=== PATIENT | female | born 1970 | race Caucasian/White ===

== ENCOUNTER 2017-03-20 20:23 | Inpatient (IN) ==
[2017-03-20 21:21] LABS: Bilirubin,Urine Negative (Negative); Blood,Urine Negative (Negative); Clarity,Urine Clear (Clear); Color,Urine Yellow (Yellow); Glucose,Urine (UA) Normal (Normal); Ketones,Urine Negative (Negative); Leukocyte Esterase,Urine Negative (Negative); Nitrite,Urine Negative (Negative); Protein,Urine Negative (Neg-Trace); Specific Gravity,Urine 1.021 (1.010-1.025); Urobilinogen,Urine Normal (Normal)
[2017-03-20 21:28] LABS: Basophils # 0.1 K/mcL (0.0-0.2); Basophils % 0.9 %; Eosinophils # 0.1 K/mcL (0.0-0.6); Eosinophils % 0.6 %; Hematocrit 42.8 % (35.3-44.9); Hemoglobin 15.1 g/dL (11.5-15.4); Immature Granulocytes % 0.2 % (0-4); Lymphocytes # 3.6 K/mcL (0.6-4.6); Lymphocytes % 41.8 %; Mean Corpuscular HGB Conc 35.3 g/dL (31.6-35.5); Mean Corpuscular Hemoglobin 30.4 pg (28.0-33.3); Mean Corpuscular Volume 86.3 fL (83.0-100.0); Monocytes # 0.5 K/mcL (0.0-1.3); Monocytes % 5.6 %; Neutrophils # 4.3 K/mcL (1.6-8.9); Platelet Count 238 K/mcL (140-400); Red Blood Count 4.96 M/mcL (3.82-4.97); Red Cell Distribution Width 12.1 % (11.5-14.5); Segmented Neutrophils % 50.9 %
[2017-03-20 21:34] LABS: Amphetamine Screen,Urine Negative ng/mL (Cutoff=1000); Barbiturate Screen,Urine Negative ng/mL (Cutoff=200); Benzodiazepines Screen,Urine Negative ng/mL (Cutoff=200); Cannabinoid Screen,Urine Positive ng/mL (Cutoff = 50); Cocaine Screen,Urine Positive ng/mL (Cutoff= 300); Opiate Screen,Urine Negative ng/mL (Cutoff=300); Phencyclidine Screen,Urine Negative ng/mL (Cutoff=25)
--- NOTE | 2017-03-20 21:38 | Emergency Department Note ---
Disposition Clinical Impression: Suicidal ideation, Acute anxiety, Depression, Cocaine abuse, Marijuana abuse Disposition: Still a Patient Forms: ED Satisfaction Letter General Adult HPI - General Chief complaint: ED Psychiatric Symptoms Stated complaint: "Feels Like She's Having A Nervous Breakdown" Source: patient Limitations: no limitations - History of Present Illness HPI Narrative: 46-year-old female with a history of anxiety and depression reports to the emergency department complaining of increasing anxiety and feeling like harming herself. She has not overdosed or harmed herself in any way. She denies any acute physical complaints. There is no history of chest pain shortness of breath abdominal pain vomiting or diarrhea. There is no history of coughing up blood, no leg swelling or pain, no acute skin rash. No trouble walking talking hearing seeing or speaking no cough or runny nose or ear pain sore throat fever acute back pain or other acute physical complaints or concerns. Patient is not known to be diabetic. She denies any major medical problems. She denies the possibility of . States she is to take psychiatric medications but has not taken them for about 3 months. She cites stress related to her children and grandchildren. Pain Scale: 8 - Related Data Allergies Allergy/AdvReac Type Severity Reaction Status Date / Time No Known Allergies Allergy Verified 03/20/17 21:02 All systems ED: reviewed and negative except as stated. Past Medical History - Past Medical History Medical history: Reports: no medical history Psychiatric history: Reports: anxiety, depression - Social History Smoking Status: Current every day smoker Smokeless Tobacco Status: No Alcohol use: Reports: none Drug use: Reports: none Physical Exam - General Limitations: no limitations General appearance: alert, anxious - Head Head exam: atraumatic, normocephalic, normal inspection - Eye Eye exam: Present: normal appearance, PERRL, EOMI. Absent: scleral icterus, conjunctival injection, miosis, mydriasis - ENT ENT exam: normal exam, normal oropharynx, mucous membranes moist, TM's normal bilaterally, normal external ear exam - Neck Neck exam: Present: normal inspection, full ROM, trachea midline. Absent: tenderness - Chest Chest inspection: Present: symmetric chest wall rise. Absent: tenderness - Respiratory Respiratory exam: Present: normal lung sounds bilaterally. Absent: respiratory distress, wheezes, accessory muscle use, prolonged expiratory phase - Cardiovascular Cardiovascular exam: Present: regular rate, normal rhythm, normal heart sounds - Abdominal Exam Abdominal exam: Present: soft, Non-Tender, normal bowel sounds. Absent: tenderness, distention, guarding, rebound, rigidity - Extremities Exam Extremities exam: Present: normal inspection, full ROM, normal capillary refill. Absent: tenderness, pedal edema, joint swelling, calf tenderness - Expanded Lower Extremity Exam Lower leg exam: Absent: Homans' sign Neurovascular/Tendon exam: Present: normal capillary refill. Absent: motor deficit, sensory deficit, tendon deficit, extremity cold to touch, pallor - Back Exam Back exam: Present: normal inspection, full ROM. Absent: tenderness, CVA tenderness (R), CVA tenderness (L), vertebral tenderness - Neurological Exam Neurological exam: Present: alert, oriented X3, CN II-XII intact. Absent: motor sensory deficit - Psychiatric Psychiatric exam: Present: anxious - Skin Skin exam: Present: warm, dry, intact, normal color. Absent: rash, cyanosis, diaphoresis, erythema, pallor, mottled Course Vital Signs Temperature 97.5 F L 03/20/17 20:50 Pulse Rate 114 03/20/17 20:50 Respiratory Rate 20 03/20/17 20:50 Blood Pressure 130/79 03/20/17 20:50 O2 Sat by Pulse Oximetry 96 03/20/17 20:50 Temperature 97.5 F L 03/20/17 20:50 Pulse Rate 105 03/20/17 21:03 Respiratory Rate 20 03/20/17 21:03 Blood Pressure 138/84 03/20/17 21:03 O2 Sat by Pulse Oximetry 97 03/20/17 21:03 Oxygen Delivery Oxygen Delivery Room Air Medical Decision Making - [facility] Narrative Medical decision making narrative: The patient has no acute physical concerns. Her testing is suggestive of drug abuse and alcohol abuse. She is anxious and reporting suicidal ideation. Based on her psychiatric concerns the psychiatric service has been consulted. It is near shift change, I checked the patient out to Pankaj DSOUZA and Dr. Johnson who will assume care and determine final diagnosis, management and disposition. - Lab Data Lab results reviewed: Yes I reviewed the patient's lab results. Result diagrams: 03/20/17 21:15 03/20/17 21:15 Lab Results 03/20/17 03/20/17 03/20/17 Range/Units 21:10 21:10 21:15 WBC 8.5 (4.3-11.1) K/mcL RBC 4.96 (3.82-4.97) M/mcL Hgb 15.1 (11.5-15.4) g/dL Hct 42.8 (35.3-44.9) % MCV 86.3 (83.0-100.0) fL MCH 30.4 (28.0-33.3) pg MCHC 35.3 (31.6-35.5) g/dL RDW 12.1 (11.5-14.5) % Plt Count 238 (140-400) K/mcL MPV 10.0 (9.4-12.4) fL Immature Gran % 0.2 (0-4) % Seg Neutrophils % 50.9 % Lymphocytes % 41.8 % Monocytes % 5.6 % Eosinophils % 0.6 % Basophils % 0.9 % Neutrophils # 4.3 (1.6-8.9) K/mcL Lymphocytes # 3.6 (0.6-4.6) K/mcL Monocytes # 0.5 (0.0-1.3) K/mcL Eosinophils # 0.1 (0.0-0.6) K/mcL Basophils # 0.1 (0.0-0.2) K/mcL Sodium (136-145) mEq/L Potassium (3.5-4.5) mEq/L Chloride (98-109) mEq/L Carbon Dioxide (19-29) mEq/L BUN (7-20) mg/dL Creatinine (0.57-1.11) mg/dL Est GFR ( Amer) (> 60) Est GFR (Non-Af Amer) (> 60) BUN/Creatinine Ratio (6-26) Glucose (70-99) mg/dL Calculated Osmolality (280-300) Calcium (8.6-10.8) mg/dL Urine Color Yellow (Yellow) Urine Clarity Clear (Clear) Urine pH 5.0 (5.0-8.0) pH Units Ur Specific [place] 1.021 (1.010-1.025) Urine Protein Negative (Neg-Trace) mg/dL Urine Glucose (UA) Normal (Normal) mg/dL Urine Ketones Negative (Negative) mg/dL Urine Blood Negative (Negative) Urine Nitrite Negative (Negative) Urine Bilirubin Negative (Negative) Urine Urobilinogen Normal (Normal) mg/dL Ur Leukocyte Esterase Negative (Negative) Salicylates (15-30) mg/dL Urine Opiates Screen Negative (Oqwnms=450) ng/mL Acetaminophen (10-30) mcg/mL Ur Barbiturates Screen Negative (Eejfte=446) ng/mL Ur Phencyclidine Scrn Negative (Cutoff=25) ng/mL Ur Amphetamines Screen Negative (Gdaqiq=6912) ng/mL U Benzodiazepines Scrn Negative (Jukara=308) ng/mL Urine Cocaine Screen Positive H (Cutoff= 300) ng/mL U Marijuana (THC) Screen Positive H (Cutoff = 50) ng/mL Ethyl Alcohol (0-10) mg/dL 03/20/17 Range/Units 21:15 WBC (4.3-11.1) K/mcL RBC (3.82-4.97) M/mcL Hgb (11.5-15.4) g/dL Hct (35.3-44.9) % MCV (83.0-100.0) fL MCH (28.0-33.3) pg MCHC (31.6-35.5) g/dL RDW (11.5-14.5) % Plt Count (140-400) K/mcL MPV (9.4-12.4) fL Immature Gran % (0-4) % Seg Neutrophils % % Lymphocytes % % Monocytes % % Eosinophils % % Basophils % % Neutrophils # (1.6-8.9) K/mcL Lymphocytes # (0.6-4.6) K/mcL Monocytes # (0.0-1.3) K/mcL Eosinophils # (0.0-0.6) K/mcL Basophils # (0.0-0.2) K/mcL Sodium 143 (136-145) mEq/L Potassium 3.5 (3.5-4.5) mEq/L Chloride 108 (98-109) mEq/L Carbon Dioxide 25 (19-29) mEq/L BUN 9 (7-20) mg/dL Creatinine 0.85 (0.57-1.11) mg/dL Est GFR ( Amer) > 60 (> 60) Est GFR (Non-Af Amer) > 60 (> 60) BUN/Creatinine Ratio 11 (6-26) Glucose 96 (70-99) mg/dL Calculated Osmolality 295 (280-300) Calcium 9.6 (8.6-10.8) mg/dL Urine Color (Yellow) Urine Clarity (Clear) Urine pH (5.0-8.0) pH Units Ur Specific [place] (1.010-1.025) Urine Protein (Neg-Trace) mg/dL Urine Glucose (UA) (Normal) mg/dL Urine Ketones (Negative) mg/dL Urine Blood (Negative) Urine Nitrite (Negative) Urine Bilirubin (Negative) Urine Urobilinogen (Normal) mg/dL Ur Leukocyte Esterase (Negative) Salicylates < 5.0 L (15-30) mg/dL Urine Opiates Screen (Ifhsub=640) ng/mL Acetaminophen < 1.0 L (10-30) mcg/mL Ur Barbiturates Screen (Gebkot=669) ng/mL Ur Phencyclidine Scrn (Cutoff=25) ng/mL Ur Amphetamines Screen (Untcld=0082) ng/mL U Benzodiazepines Scrn (Vqplua=131) ng/mL Urine Cocaine Screen (Cutoff= 300) ng/mL U Marijuana (THC) Screen (Cutoff = 50) ng/mL Ethyl Alcohol 62 H (0-10) mg/dL
[2017-03-20] MEDS ORDERED: *HR* LORazepam 1 MG TABLET PO ONE (21:47)
[2017-03-20 21:48] LABS: BUN/Creatinine Ratio 11 (6-26); Blood Urea Nitrogen 9 mg/dL (7-20); Calcium 9.6 mg/dL (8.6-10.8); Carbon Dioxide 25 mEq/L (19-29); Chloride 108 mEq/L (98-109); Ethanol 62 mg/dL (0-10); Glucose 96 mg/dL (70-99); Osmolality,Calculated 295 (280-300); Potassium 3.5 mEq/L (3.5-4.5); Sodium 143 mEq/L (136-145); eGFR For African Americans > 60 (> 60); eGFR For Non-African Americans > 60 (> 60)
[2017-03-20 21:55] LABS: Acetaminophen < 1.0 mcg/mL (10-30); Salicylate < 5.0 mg/dL (15-30)
[2017-03-21] MEDS ORDERED: *HR* LORazepam 1 MG TABLET PO ONE (01:19)
--- NOTE | 2017-03-21 01:45 | Emergency Department Note ---
Disposition Clinical Impression: Suicidal ideation, Acute anxiety, Depression, Cocaine abuse, Marijuana abuse Disposition: Admitted As Inpatient Condition: Fair Forms: ED Satisfaction Letter General Adult HPI - General Chief complaint: ED Psychiatric Symptoms Stated complaint: "Feels Like She's Having A Nervous Breakdown" Time Seen by Provider: 03/21/17 01:18 Source: patient Limitations: no limitations - History of Present Illness Pain Scale: 8 - Related Data Allergies Allergy/AdvReac Type Severity Reaction Status Date / Time No Known Allergies Allergy Verified 03/20/17 21:02 Past Medical History - Past Medical History Medical history: Reports: no medical history Psychiatric history: Reports: anxiety, depression - Social History Smoking Status: Current every day smoker Smokeless Tobacco Status: No Alcohol use: Reports: none Drug use: Reports: none Physical Exam - General Limitations: no limitations General appearance: alert, anxious Course Course Narrative: This patient was signed out at shift change from Dr. Gorman. Please refer to his note for complete details of history and physical examination. At shift change the patient is awaiting psychiatric evaluation and disposition. Patient was evaluated in the emergency department by the [facility] psychiat[facility] service and is being admitted to the hospital to the [facility] psychiatric unit. Vital Signs Temperature 97.5 F L 03/20/17 20:50 Pulse Rate 114 03/20/17 20:50 Respiratory Rate 20 03/20/17 20:50 Blood Pressure 130/79 03/20/17 20:50 O2 Sat by Pulse Oximetry 96 03/20/17 20:50 Temperature 97.5 F L 03/20/17 20:50 Pulse Rate 105 03/20/17 21:03 Respiratory Rate 20 03/20/17 21:03 Blood Pressure 138/84 03/20/17 21:03 O2 Sat by Pulse Oximetry 97 03/20/17 21:03 Oxygen Delivery Oxygen Delivery Room Air Medical Decision Making - Lab Data Result diagrams: 03/20/17 21:15 03/20/17 21:15 Lab Results 03/20/17 03/20/17 03/20/17 Range/Units 21:10 21:10 21:15 WBC 8.5 (4.3-11.1) K/mcL RBC 4.96 (3.82-4.97) M/mcL Hgb 15.1 (11.5-15.4) g/dL Hct 42.8 (35.3-44.9) % MCV 86.3 (83.0-100.0) fL MCH 30.4 (28.0-33.3) pg MCHC 35.3 (31.6-35.5) g/dL RDW 12.1 (11.5-14.5) % Plt Count 238 (140-400) K/mcL MPV 10.0 (9.4-12.4) fL Immature Gran % 0.2 (0-4) % Seg Neutrophils % 50.9 % Lymphocytes % 41.8 % Monocytes % 5.6 % Eosinophils % 0.6 % Basophils % 0.9 % Neutrophils # 4.3 (1.6-8.9) K/mcL Lymphocytes # 3.6 (0.6-4.6) K/mcL Monocytes # 0.5 (0.0-1.3) K/mcL Eosinophils # 0.1 (0.0-0.6) K/mcL Basophils # 0.1 (0.0-0.2) K/mcL Sodium (136-145) mEq/L Potassium (3.5-4.5) mEq/L Chloride (98-109) mEq/L Carbon Dioxide (19-29) mEq/L BUN (7-20) mg/dL Creatinine (0.57-1.11) mg/dL Est GFR ( Amer) (> 60) Est GFR (Non-Af Amer) (> 60) BUN/Creatinine Ratio (6-26) Glucose (70-99) mg/dL Calculated Osmolality (280-300) Calcium (8.6-10.8) mg/dL Urine Color Yellow (Yellow) Urine Clarity Clear (Clear) Urine pH 5.0 (5.0-8.0) pH Units Ur Specific [place] 1.021 (1.010-1.025) Urine Protein Negative (Neg-Trace) mg/dL Urine Glucose (UA) Normal (Normal) mg/dL Urine Ketones Negative (Negative) mg/dL Urine Blood Negative (Negative) Urine Nitrite Negative (Negative) Urine Bilirubin Negative (Negative) Urine Urobilinogen Normal (Normal) mg/dL Ur Leukocyte Esterase Negative (Negative) Salicylates (15-30) mg/dL Urine Opiates Screen Negative (Xrlcgo=879) ng/mL Acetaminophen (10-30) mcg/mL Ur Barbiturates Screen Negative (Advygi=367) ng/mL Ur Phencyclidine Scrn Negative (Cutoff=25) ng/mL Ur Amphetamines Screen Negative (Uhpsse=5487) ng/mL U Benzodiazepines Scrn Negative (Yzjgkm=648) ng/mL Urine Cocaine Screen Positive H (Cutoff= 300) ng/mL U Marijuana (THC) Screen Positive H (Cutoff = 50) ng/mL Ethyl Alcohol (0-10) mg/dL 03/20/17 Range/Units 21:15 WBC (4.3-11.1) K/mcL RBC (3.82-4.97) M/mcL Hgb (11.5-15.4) g/dL Hct (35.3-44.9) % MCV (83.0-100.0) fL MCH (28.0-33.3) pg MCHC (31.6-35.5) g/dL RDW (11.5-14.5) % Plt Count (140-400) K/mcL MPV (9.4-12.4) fL Immature Gran % (0-4) % Seg Neutrophils % % Lymphocytes % % Monocytes % % Eosinophils % % Basophils % % Neutrophils # (1.6-8.9) K/mcL Lymphocytes # (0.6-4.6) K/mcL Monocytes # (0.0-1.3) K/mcL Eosinophils # (0.0-0.6) K/mcL Basophils # (0.0-0.2) K/mcL Sodium 143 (136-145) mEq/L Potassium 3.5 (3.5-4.5) mEq/L Chloride 108 (98-109) mEq/L Carbon Dioxide 25 (19-29) mEq/L BUN 9 (7-20) mg/dL Creatinine 0.85 (0.57-1.11) mg/dL Est GFR ( Amer) > 60 (> 60) Est GFR (Non-Af Amer) > 60 (> 60) BUN/Creatinine Ratio 11 (6-26) Glucose 96 (70-99) mg/dL Calculated Osmolality 295 (280-300) Calcium 9.6 (8.6-10.8) mg/dL Urine Color (Yellow) Urine Clarity (Clear) Urine pH (5.0-8.0) pH Units Ur Specific [place] (1.010-1.025) Urine Protein (Neg-Trace) mg/dL Urine Glucose (UA) (Normal) mg/dL Urine Ketones (Negative) mg/dL Urine Blood (Negative) Urine Nitrite (Negative) Urine Bilirubin (Negative) Urine Urobilinogen (Normal) mg/dL Ur Leukocyte Esterase (Negative) Salicylates < 5.0 L (15-30) mg/dL Urine Opiates Screen (Dipayf=762) ng/mL Acetaminophen < 1.0 L (10-30) mcg/mL Ur Barbiturates Screen (Ybpeyi=439) ng/mL Ur Phencyclidine Scrn (Cutoff=25) ng/mL Ur Amphetamines Screen (Orwzxy=4934) ng/mL U Benzodiazepines Scrn (Zeqqcu=046) ng/mL Urine Cocaine Screen (Cutoff= 300) ng/mL U Marijuana (THC) Screen (Cutoff = 50) ng/mL Ethyl Alcohol 62 H (0-10) mg/dL
[2017-03-21] MEDS ORDERED: *HR* LORazepam 1 MG TABLET PO PRN (02:15)
[2017-03-21] MEDS ORDERED: Ibuprofen 400 MG TABLET PO PRN (02:15)
[2017-03-21] MEDS ORDERED: Haloperidol Lactate 5 MG/ML VIAL IM PRN (02:15)
[2017-03-21] MEDS ORDERED: Nicotine 2 MG GUM BC PRN (02:15)
[2017-03-21] MEDS ORDERED: MOM Conc 10 ML UD.LIQ PO PRN (02:15)
[2017-03-21] MEDS ORDERED: traZODone 50 MG TABLET PO PRN (02:15)
[2017-03-21] MEDS ORDERED: Mag Hydrox/Al Hydrox/Simeth 30 ML UDC PO PRN (02:15)
[2017-03-21] MEDS ORDERED: hydrOXYzine pamoate 25 MG CAPSULE PO PRN (02:15)
[2017-03-21] MEDS ORDERED: *HR* LORazepam 2 MG/ML VIAL IM PRN (02:15)
--- NOTE | 2017-03-21 12:41 | Psychiatry History & Physical ---
Date of Encounter: 03/21/17 Time of Encounter: 12:00 History of Present Illness Patient Stated Chief Complaint: Suicidal ideation Medicare Admission Attestation: For traditional Medicare patients the provided hospital inpatient services are reasonable and necessary and in the case of services not specified as inpatient -only under 42 CFR 419.22 (n), that they are appropriately provided as inpatient services in accordance 42 CFR 412.3. For Critical Access Hospital the patient may reasonably be expected to be discharged or transferred to a hospital within 96 hours after admission to the Critical Access Hospital. Admitted From: Emergency Dept History of Present Illness: Ms. Liu is a 46 year old female admitted from the emergency department for depression and suicidal ideation. Patient presented to the emergency department complaining of worsening depression and suicidal ideation and hopelessness. Patient is stressed out by problems at her work and also some family problems she is isolated and her children are not contacting her visiting her. UDS was positive for cocaine, THC and alcohol. Patient stated that she was treated in the past with medication and was followed by mental health clinic and for the past couple of years she stopped taking medication or having appointments. Patient denies any past suicide attempts and she had a brief hospitalization several years ago at [facility]. Patient has a history of substance abuse and dependence including alcohol and had DUI 3 last one was last year. Past Med Surg Social Fam HX - Past Medical History Medical history: no medical history - Past Psychiatric History Psychiatric history: Reports: anxiety, depression, previous psychiatric hospitalization Past psychiatric history details: No records available - Past Surgical History Surgical History: no surgical history - Social History Smoking Status: Current every day smoker Smokeless Tobacco Status: No Alcohol use: none Drug use: none Medications & Allergies No Known Home Drugs 03/21/17 [History] Allergies No Known Allergies Allergy (Verified 03/20/17 21:02) Review of Systems Psychiatric: Reports: depression, anxiety, suicidal ideation Mental Status Exam Patient orientation: Yes Person, Yes Time, Yes Place Level of alertness: Alert Patient appearance: Appropriate, Unkempt, Obese Behavior: calm, cooperative, anxious, tearful, dramatic Psychomotor activity: Slowed Eye contact: Avoids Eye Contact Mood description: Depressed, Anxious Affect description: congruent with mood, constricted Speech pattern: Normal rate, Normal rhythm, Normal tone Speech volume: Normal Thought process: Linear, Goal Oriented Thought content: Yes Suicidal ideation, No Homicidal ideation, No Overt delusions Perceptual disturbances: No Auditory hallucinations, No Visual hallucinations Attention span: Capable of Focused Attention Memory description: Grossly Intact Patient reliability: Reliable Historian Intelligence estimate: Average Judgment: Limited Insight: Partial Results - Vital Signs Vital signs: Temp Pulse Resp BP Pulse Ox 97.2 F L 90 18 134/10 97 03/21/17 09:00 03/21/17 09:00 03/21/17 09:00 03/21/17 09:00 03/20/17 21:03 - Labs Labs: Laboratory Last Values WBC 8.5 K/mcL (4.3-11.1) 03/20/17 21:15 RBC 4.96 M/mcL (3.82-4.97) 03/20/17 21:15 Hgb 15.1 g/dL (11.5-15.4) 03/20/17 21:15 Hct 42.8 % (35.3-44.9) 03/20/17 21:15 MCV 86.3 fL (83.0-100.0) 03/20/17 21:15 MCH 30.4 pg (28.0-33.3) 03/20/17 21:15 MCHC 35.3 g/dL (31.6-35.5) 03/20/17 21:15 RDW 12.1 % (11.5-14.5) 03/20/17 21:15 Plt Count 238 K/mcL (140-400) 03/20/17 21:15 MPV 10.0 fL (9.4-12.4) 03/20/17 21:15 Immature Gran % 0.2 % (0-4) 03/20/17 21:15 Seg Neutrophils % 50.9 % 03/20/17 21:15 Lymphocytes % 41.8 % 03/20/17 21:15 Monocytes % 5.6 % 03/20/17 21:15 Eosinophils % 0.6 % 03/20/17 21:15 Basophils % 0.9 % 03/20/17 21:15 Neutrophils # 4.3 K/mcL (1.6-8.9) 03/20/17 21:15 Lymphocytes # 3.6 K/mcL (0.6-4.6) 03/20/17 21:15 Monocytes # 0.5 K/mcL (0.0-1.3) 03/20/17 21:15 Eosinophils # 0.1 K/mcL (0.0-0.6) 03/20/17 21:15 Basophils # 0.1 K/mcL (0.0-0.2) 03/20/17 21:15 Sodium 143 mEq/L (136-145) 03/20/17 21:15 Potassium 3.5 mEq/L (3.5-4.5) 03/20/17 21:15 Chloride 108 mEq/L (98-109) 03/20/17 21:15 Carbon Dioxide 25 mEq/L (19-29) 03/20/17 21:15 BUN 9 mg/dL (7-20) 03/20/17 21:15 Creatinine 0.85 mg/dL (0.57-1.11) 03/20/17 21:15 Est GFR ( Amer) > 60 (> 60) 03/20/17 21:15 Est GFR (Non-Af Amer) > 60 (> 60) 03/20/17 21:15 BUN/Creatinine Ratio 11 (6-26) 03/20/17 21:15 Glucose 96 mg/dL (70-99) 03/20/17 21:15 Calculated Osmolality 295 (280-300) 03/20/17 21:15 Calcium 9.6 mg/dL (8.6-10.8) 03/20/17 21:15 Urine Color Yellow (Yellow) 03/20/17 21:10 Urine Clarity Clear (Clear) 03/20/17 21:10 Urine pH 5.0 pH Units (5.0-8.0) 03/20/17 21:10 Ur Specific [place] 1.021 (1.010-1.025) 03/20/17 21:10 Urine Protein Negative mg/dL (Neg-Trace) 03/20/17 21:10 Urine Glucose (UA) Normal mg/dL (Normal) 03/20/17 21:10 Urine Ketones Negative mg/dL (Negative) 03/20/17 21:10 Urine Blood Negative (Negative) 03/20/17 21:10 Urine Nitrite Negative (Negative) 03/20/17 21:10 Urine Bilirubin Negative (Negative) 03/20/17 21:10 Urine Urobilinogen Normal mg/dL (Normal) 03/20/17 21:10 Ur Leukocyte Esterase Negative (Negative) 03/20/17 21:10 Salicylates < 5.0 mg/dL (15-30) L 03/20/17 21:15 Urine Opiates Screen Negative ng/mL (Zecngg=748) 03/20/17 21:10 Acetaminophen < 1.0 mcg/mL (10-30) L 03/20/17 21:15 Ur Barbiturates Screen Negative ng/mL (Mescab=303) 03/20/17 21:10 Ur Phencyclidine Scrn Negative ng/mL (Cutoff=25) 03/20/17 21:10 Ur Amphetamines Screen Negative ng/mL (Kykqdd=6988) 03/20/17 21:10 U Benzodiazepines Scrn Negative ng/mL (Mfydly=206) 03/20/17 21:10 Urine Cocaine Screen Positive ng/mL (Cutoff= 300) H 03/20/17 21:10 U Marijuana (THC) Screen Positive ng/mL (Cutoff = 50) H 03/20/17 21:10 Ethyl Alcohol 62 mg/dL (0-10) H 03/20/17 21:15 Assessment and Plan (1) Major depressive disorder, recurrent, unspecified Current visit: Yes Status: Acute Plan: Admit inpatient for safety and stabilization, Close observation, Suicide Precautions per unit protocol, Encourage participation in unit milieu, Group Therapy, Monitor sleep, Monitor appetite Additional Plan: 1. Will start patient on Cymbalta 60 mg daily, benefits side effects were discussed and she is agreeable to start 2. Patient was advised to cut down on smoking and caffeine and stop using any alcohol or cocaine or marijuana Risks, benefits, side effects, alternatives discussed w/pt: Yes Patient agreeable to treatment: Yes Estimated Length of Stay (Days): 5 Qualifiers: Active/Remission status: currently active Psychotic features: without psychotic features Qualified Code(s): F33.2 - Major depressive disorder, recurrent severe without psychotic features (2) Cocaine abuse Current visit: Yes Status: Acute Plan: Admit inpatient for safety and stabilization, Close observation, Suicide Precautions per unit protocol, Encourage participation in unit milieu, Group Therapy, Monitor sleep, Monitor appetite
--- NOTE | 2017-03-22 16:17 | Psychiatry Progress Note ---
Date of Encounter: 03/22/17 Time of Encounter: 16:15 Subjective Interval history: Patient is seen for follow-up. She reports improvement of her sleep and appetite and energy level. She is not depressed and denies suicidal ideation and she is hopeful and future oriented. She reports her anxiety is reduced and she tolerated the new medication and denies any side effects. She is making and plan for making changes in her life including her relationship with her children and her work. Review of Systems Psychiatric: Reports: depression, anxiety, suicidal ideation Objective: Exam Patient orientation: Yes Person, Yes Time, Yes Place Level of alertness: Alert Patient appearance: Appropriate, Well Groomed Behavior: calm, cooperative Psychomotor activity: Normal Eye contact: Maintains Eye Contact Mood description: Euthymic/stable Affect description: congruent with mood, full range Speech pattern: Normal rate, Normal rhythm, Normal tone Speech volume: Normal Thought process: Linear, Goal Oriented Thought content: No Suicidal ideation, No Homicidal ideation, No Overt delusions Perceptual disturbances: No Auditory hallucinations, No Visual hallucinations Judgment: Fair Insight: Partial Results - Vital Signs Vital Signs: Temp Pulse Resp BP Pulse Ox 98 F 83 18 120/83 97 03/22/17 09:00 03/22/17 09:00 03/22/17 09:00 03/22/17 09:00 03/20/17 21:03 Assessment and Plan (1) Major depressive disorder, recurrent, unspecified Current visit: Yes Status: Acute Plan: Continue hospitalization, Close observation, Suicide Precautions per unit protocol, Encourage participation in unit milieu, Group Therapy, Monitor sleep, Monitor appetite Risks, benefits, side effects, alternatives discussed w/pt: Yes Patient agreeable to treatment: Yes Qualifiers: Active/Remission status: currently active Psychotic features: without psychotic features Qualified Code(s): F33.2 - Major depressive disorder, recurrent severe without psychotic features (2) Cocaine abuse Current visit: Yes Status: Acute Plan: Continue hospitalization, Close observation, Suicide Precautions per unit protocol, Encourage participation in unit milieu, Group Therapy, Monitor sleep, Monitor appetite Consult Discharge Plan - Plan Referrals: Mental Health [facility] [Outside] (To start services you may walk in any Sunday or , between the hours of 7:30 AM and 3:00 PM to be seen. New patients are seen on a first come first serve basis. At that time your case will be opened and you will be scheduled for continued counseling, case management and psychiatric services. Please bring your photo ID, proof of insurance and medication list. Services may be provided while you are awaiting your Medicaid to be processed. Mental health services of [facility] are located at [address] [place] [address]. the phone number is . The fax number is [phone].)
[2017-03-22] MEDS: Nicotine 21 MG PATCH.TD24 TD SCH (18:24)
[2017-03-23 09:13] VITALS: BP 128/94
[2017-03-23] MEDS: Nicotine 21 MG PATCH.TD24 TD SCH (09:13)
--- NOTE | 2017-03-23 15:13 | Discharge Summary ---
Date of Encounter: 03/23/17 Time of Encounter: 14:45 Diagnosis - Discharge Diagnosis (1) Major depressive disorder, recurrent, unspecified Status: Acute Qualifiers: Active/Remission status: currently active Psychotic features: without psychotic features Qualified Code(s): F33.2 - Major depressive disorder, recurrent severe without psychotic features (2) Cocaine abuse Status: Acute Medications - Discharge Medications Prescriptions: DULoxetine [Cymbalta] 60 mg PO DAILY #30 capsule. DULoxetine [Cymbalta] 60 mg PO DAILY #30 capsule. 03/23/17 [Rx] Allergies No Known Allergies Allergy (Verified 03/20/17 21:02) Provider Date of admission: 03/21/17 01:52 Primary care physician: PCP NO Discharging clinician: Chance Olivas Assessment and Plan - Patient/Caregiver Discharge Instructions Activity: resume usual activities as tolerated Diet: regular diet - Follow up Plan Follow up with: [facility] [Outside] (To start services you may walk in any Sunday or , between the hours of 7:30 AM and 3:00 PM to be seen. New patients are seen on a first come first serve basis. At that time your case will be opened and you will be scheduled for continued counseling, case management and psychiatric services. Please bring your photo ID, proof of insurance and medication list. Services may be provided while you are awaiting your Medicaid to be processed. [facility] health services of [facility] are located at [address] [place] [address]. the phone number is . The fax number is [phone].) Functional capacity at discharge: independent ambulation Overall status at discharge: Stable Disposition: Home, Self-Care Hospital Course Hospital course: Ms. Liu is a 46 year old female admitted for depression and suicidal ideation. For details of admission please see H&P On the units patient was started on Cymbalta 60 mg daily, she tolerated the medication and reported improved energy level and sleep, she felt less depressed and less anxious she was able to participate in groups and denied any suicidal thoughts or hopelessness. She was educated about medication and substance abuse and she was receptive to his information. On discharge she was medically stable future oriented and well motivated and denied any thoughts of suicide. Her discharge plan and follow-up were completed by the social work. - Time Spent with Patient Total time spent providing and/or coordinating discharge services: Greater than 30 minutes Quality - Multiple Antipsychotics Patient discharged on 2 or more antipsychotic medications: No Procedures - Procedures Procedures: Medication Management, Crisis Stabilization, Supportive Therapy, Group Therapy, Psychoeducational Therapy Mental Status Exam - Mental Status Exam Patient orientation: Yes Person, Yes Time, Yes Place Level of alertness: Alert Patient appearance: Appropriate, Well Groomed, Obese Behavior: calm, cooperative Psychomotor activity: Normal Eye contact: Maintains Eye Contact Mood description: Euthymic/stable Affect description: congruent with mood, full range Speech pattern: Normal rate, Normal rhythm, Normal tone Speech Volume: Normal Thought process: Linear, Goal Oriented Thought Content: No Suicidal ideation, No Homicidal ideation, No Overt delusions Perceptual Disturbances: No Auditory hallucinations, No Visual hallucinations Judgment: Limited Insight: Partial
== END 2017-03-23 16:46 | disposition home or self-care (01) | DRG 751 ==
LOC: EMEROO 20:23 → 1ANU 03-21 01:52
PROVIDERS: ADMIT Psychiatry & Neurology Psychiatry; ATTEND Psychiatry & Neurology Psychiatry